=== PATIENT | female | born 1950 | race American Indian/Alaskan Native ===

== ENCOUNTER 2018-06-06 15:40 | Inpatient (IN) | payer MEDICARE ==
[2018-06-06] MEDS ORDERED: NACL 0.9% 500 ML 500 ML IV ONE (15:54)
--- NOTE | 2018-06-06 15:57 | Emergency Department Report ---
ED Neuro Deficit HPI - General Chief Complaint: Weakness Stated Complaint: POSSIBLE CVA Time Seen by Provider: 06/06/18 15:50 Source: patient, EMS (ems notes not available at time of chart dictation. Verbal report received from EMS), RN notes reviewed, old records reviewed Mode of arrival: Stretcher Limitations: Physical Limitation - History of Present Illness Initial Comments: This is a 68-year-old female. The patient is not known to this provider previously. The patient has a past medical history of stroke with residual left-sided weakness, hypertension, diabetes, hypothyroidism, peripheral neuropathy, obesity The patient is brought to the hospital today as a possible code stroke. As per verbal report from EMS, and then subsequently the patient, EMS was contacted initially, at this, or around 1:45 PM today, with a complaint of elevated blood pressure. EMS really reported to this provider that the patient was "hypertensive." They then left. EMS was then activated, after the patient went to the restroom at around 2:47 PM, and reportedly developed worsening left-sided weakness. She indicates it was in her left arm. The patient also made comments about her left leg being weak, but she was not able to clarify if the weakness was new or old or worse or better. In addition, she was reported by emergency medical services to be ambulating with a walker after using the restroom. The patient indicates chronic neuropathic numbness in her legs, and indicates that her symptoms appear to be constant, did not radiate anywhere, does not appear to have exacerbating or relieving factors. She indicated that she is taking aspirin. Of note, patient was admitted to this hospital for similar symptoms in October, had an extensive workup, including negative MRI of the brain, which was negative for acute disease, MRa of the brain, which was negative for acute disease, unremarkable echocardiogram, unremarkable carotid Doppler, and unremarkable MRI of the cervical and thoracic spine. At that time, physical therapy and rehabilitation was recommended, patient was seen in conjunction with neurology, who recommended outpatient visual evoked potentials. It was suspected that the patient may have had an acute lacunar stroke, which did not show up in the MRI. -: Sudden Location: left arm, left leg Presenting Symptoms: Present: Weak/Paralyzed One Side History of same: Yes Place: home Severity: moderate Quality: weak Improves With: none Worsens With: none On Anticoagulants: Yes Context: gradual onset - Related Data Home Medications: Home Medications Medication Instructions Recorded Confirmed Last Taken Atenolol [Tenormin] 50 mg PO QDAY 07/18/14 11/24/17 Unknown Gabapentin [Neurontin] 200 mg PO QDAY 07/18/14 11/24/17 Unknown amLODIPine [Norvasc] 10 mg PO QDAY 07/18/14 11/24/17 Unknown cloNIDine [Catapres] 0.2 mg PO QID 07/18/14 11/24/17 11/24/17 metFORMIN [Glucophage] 500 mg PO BID 07/18/14 11/24/17 Unknown Previous Rx's Medication Instructions Recorded Last Taken Type AtorvaSTATin [Lipitor] 40 mg PO QHS #30 tablet 11/28/17 Unknown Rx Levothyroxine [Synthroid] 25 mcg PO DAILY@0600 #30 tablet 11/28/17 Unknown Rx Levothyroxine [Synthroid] 150 mcg PO DAILY@0600 #30 tablet 11/28/17 Unknown Rx traMADol [Ultram 50 MG tab] 50 mg PO Q6HR PRN #10 tablet 11/28/17 Unknown Rx Allergies/Adverse Reactions: Allergies Allergy/AdvReac Type Severity Reaction Status Date / Time doxycycline Allergy Itching Verified 04/07/15 13:49 alprazolam [From Xanax] AdvReac Shortness Verified 04/07/15 18:06 of Breath Penicillins AdvReac Rash Verified 04/07/15 13:49 ED Review of Systems ROS: Stated complaint: POSSIBLE CVA Other details as noted in HPI Constitutional: malaise. denies: fever Eyes: denies: eye discharge ENT: denies: epistaxis Respiratory: denies: cough Cardiovascular: denies: chest pain Gastrointestinal: denies: vomiting Genitourinary: denies: dysuria Musculoskeletal: arthralgia, myalgia Skin: denies: lesions Neurological: weakness Psychiatric: anxiety ED Past Medical Hx - Past Medical History Hx Hypertension: Yes Hx CVA: Yes Hx Congestive Heart Failure: No Hx Diabetes: Yes Hx Deep Vein Thrombosis: No Hx Arthritis: Yes Hx Seizures: No Hx Asthma: No Additional medical history: LYMPHEDEMA - Surgical History Additional Surgical History: tubal ligation - Social History Smoking Status: Never Smoker - Medications Home Medications: Home Medications Medication Instructions Recorded Confirmed Last Taken Type Atenolol [Tenormin] 50 mg PO QDAY 07/18/14 11/24/17 Unknown History Gabapentin [Neurontin] 200 mg PO QDAY 07/18/14 11/24/17 Unknown History amLODIPine [Norvasc] 10 mg PO QDAY 07/18/14 11/24/17 Unknown History cloNIDine [Catapres] 0.2 mg PO QID 07/18/14 11/24/17 11/24/17 History metFORMIN [Glucophage] 500 mg PO BID 07/18/14 11/24/17 Unknown History AtorvaSTATin [Lipitor] 40 mg PO QHS #30 tablet 11/28/17 Unknown Rx Levothyroxine [Synthroid] 25 mcg PO DAILY@0600 #30 tablet 11/28/17 Unknown Rx Levothyroxine [Synthroid] 150 mcg PO DAILY@0600 #30 tablet 11/28/17 Unknown Rx traMADol [Ultram 50 MG tab] 50 mg PO Q6HR PRN #10 tablet 11/28/17 Unknown Rx ED Neuro Physical Exam - General General appearance: alert, in no apparent distress, obese Suspected Stroke: No - Head Head exam: Present: atraumatic, normocephalic - Eye Eye exam: Present: normal appearance, EOMI. Absent: nystagmus - ENT ENT exam: Present: normal exam, normal orophraynx, mucous membranes moist, normal external ear exam - Neck Neck exam: Present: normal inspection, full ROM. Absent: tenderness, meningismus - Respiratory Respiratory exam: Present: normal lung sounds bilaterally. Absent: respiratory distress - Cardiovascular Cardiovascular Exam: Present: regular rate, normal rhythm, normal heart sounds. Absent: bradycardia, tachycardia, irregular rhythm, systolic murmur, diastolic murmur, rubs, gallop - GI/Abdominal GI/Abdominal exam: Present: soft. Absent: distended, tenderness, guarding, rebound, rigid, pulsatile mass - Extremities Exam Extremities exam: Present: normal inspection, pedal edema. Absent: calf tenderness - Back Exam Back exam: Present: normal inspection. Absent: tenderness, CVA tenderness (R), paraspinal tenderness - Neurological Exam Neurological exam: Present: alert, oriented X3, motor sensory deficit - NIHSS Assessment Interval: Baseline 1a. Level of Consciousness: alert/keenly responsive 1b. LOC Questions: answers both correctly 1c. LOC Commands: performs tasks correctly 2. Best Gaze: normal 3. Visual: no visual loss 4. Facial Palsy: normal symmetrical movement 5b. Motor Arm Right: no drift 5a. Motor Arm Left: drift 6a. Motor Leg Left: drift 6b. Motor Leg Right: drift 7. Limb Ataxia: present 1 limb 8. Sensory: mild/moderate sensory loss 9. Best Language: no aphasia 10. Dysarthria: normal 11. Extinction/Inattention: no abnormality Total Score: 5 Stroke Severity: Moderate Stroke - Psychiatric Psychiatric exam: Present: normal affect, normal mood - Skin Skin exam: Present: warm, dry, intact, normal color. Absent: rash ED Course Vital Signs 06/06/18 06/06/18 06/06/18 16:17 16:24 16:30 Temperature 97.9 F Pulse Rate 79 Respiratory 12 Rate Blood Pressure 222/134 222/134 222/134 Blood Pressure [Right] O2 Sat by Pulse 99 95 Oximetry 06/06/18 06/06/18 06/06/18 16:47 17:00 17:30 Temperature Pulse Rate 73 68 62 Respiratory 18 14 16 Rate Blood Pressure 182/96 188/87 Blood Pressure 178/91 [Right] O2 Sat by Pulse 9 L 95 96 Oximetry - Lab Data Result diagrams: 06/06/18 16:19 06/06/18 16:19 Lab Results 06/06/18 06/06/18 06/06/18 Range/Units 15:46 16:19 16:19 WBC 6.1 (4.5-11.0) K/mm3 RBC 4.49 (3.65-5.03) M/mm3 Hgb 12.4 (10.1-14.3) gm/dl Hct 38.3 (30.3-42.9) % MCV 85 (79-97) fl MCH 28 (28-32) pg MCHC 32 (30-34) % RDW 15.7 H (13.2-15.2) % Plt Count 243 (140-440) K/mm3 Lymph % (Auto) 25.9 (13.4-35.0) % [place] % (Auto) 12.1 H (0.0-7.3) % Eos % (Auto) 3.9 (0.0-4.3) % Baso % (Auto) 0.5 (0.0-1.8) % Lymph # 1.6 (1.2-5.4) K/mm3 [place] # 0.7 (0.0-0.8) K/mm3 Eos # 0.2 (0.0-0.4) K/mm3 Baso # 0.0 (0.0-0.1) K/mm3 Seg Neutrophils % 57.6 (40.0-70.0) % Seg Neutrophils # 3.5 (1.8-7.7) K/mm3 PT 13.6 (12.2-14.9) Sec. INR 1.00 (0.87-1.13) APTT 32.0 (24.2-36.6) Sec. Thrombin Time (15.1-19.6) Sec. Sodium (137-145) mmol/L Potassium (3.6-5.0) mmol/L Chloride (98-107) mmol/L Carbon Dioxide (22-30) mmol/L Anion Gap mmol/L BUN (7-17) mg/dL Creatinine (0.7-1.2) mg/dL Estimated GFR ml/min BUN/Creatinine Ratio % Glucose (65-100) mg/dL POC Glucose 102 (70-105) Calcium (8.4-10.2) mg/dL Total Creatine Kinase (30-135) units/L Troponin T (0.00-0.029) ng/mL Urine Color (Yellow) Urine Turbidity (Clear) Urine pH (5.0-7.0) Ur Specific [place] (1.003-1.030) Urine Protein (Negative) mg/dL Urine Glucose (UA) (Negative) mg/dL Urine Ketones (Negative) mg/dL Urine Blood (Negative) Urine Nitrite (Negative) Urine Bilirubin (Negative) Urine Urobilinogen (<2.0) mg/dL Ur Leukocyte Esterase (Negative) Urine WBC (Auto) (0.0-6.0) /HPF Urine RBC (Auto) (0.0-6.0) /HPF U Epithel Cells (Auto) (0-13.0) /HPF 06/06/18 06/06/18 06/06/18 Range/Units 16: 16: 16: WBC (4.5-11.0) K/mm3 RBC (3.65-5.03) M/mm3 Hgb (10.1-14.3) gm/dl Hct (30.3-42.9) % MCV (79-97) fl MCH (28-32) pg MCHC (30-34) % RDW (13.2-15.2) % Plt Count (140-440) K/mm3 Lymph % (Auto) (13.4-35.0) % [place] % (Auto) (0.0-7.3) % Eos % (Auto) (0.0-4.3) % Baso % (Auto) (0.0-1.8) % Lymph # (1.2-5.4) K/mm3 [place] # (0.0-0.8) K/mm3 Eos # (0.0-0.4) K/mm3 Baso # (0.0-0.1) K/mm3 Seg Neutrophils % (40.0-70.0) % Seg Neutrophils # (1.8-7.7) K/mm3 PT (12.2-14.9) Sec. INR (0.87-1.13) APTT (24.2-36.6) Sec. Thrombin Time 21.0 H (15.1-19.6) Sec. Sodium 138 (137-145) mmol/L Potassium 3.5 L (3.6-5.0) mmol/L Chloride 96.8 L (98-107) mmol/L Carbon Dioxide 28 (22-30) mmol/L Anion Gap 17 mmol/L BUN 11 (7-17) mg/dL Creatinine 0.5 L (0.7-1.2) mg/dL Estimated GFR > 60 ml/min BUN/Creatinine Ratio 22 % Glucose 105 H (65-100) mg/dL POC Glucose (70-105) Calcium 9.1 (8.4-10.2) mg/dL Total Creatine Kinase 73 (30-135) units/L Troponin T < 0.010 (0.00-0.029) ng/mL Urine Color (Yellow) Urine Turbidity (Clear) Urine pH (5.0-7.0) Ur Specific [place] (1.003-1.030) Urine Protein (Negative) mg/dL Urine Glucose (UA) (Negative) mg/dL Urine Ketones (Negative) mg/dL Urine Blood (Negative) Urine Nitrite (Negative) Urine Bilirubin (Negative) Urine Urobilinogen (<2.0) mg/dL Ur Leukocyte Esterase (Negative) Urine WBC (Auto) (0.0-6.0) /HPF Urine RBC (Auto) (0.0-6.0) /HPF U Epithel Cells (Auto) (0-13.0) /HPF 06/06/18 Range/Units Unknown WBC (4.5-11.0) K/mm3 RBC (3.65-5.03) M/mm3 Hgb (10.1-14.3) gm/dl Hct (30.3-42.9) % MCV (79-97) fl MCH (28-32) pg MCHC (30-34) % RDW (13.2-15.2) % Plt Count (140-440) K/mm3 Lymph % (Auto) (13.4-35.0) % [place] % (Auto) (0.0-7.3) % Eos % (Auto) (0.0-4.3) % Baso % (Auto) (0.0-1.8) % Lymph # (1.2-5.4) K/mm3 [place] # (0.0-0.8) K/mm3 Eos # (0.0-0.4) K/mm3 Baso # (0.0-0.1) K/mm3 Seg Neutrophils % (40.0-70.0) % Seg Neutrophils # (1.8-7.7) K/mm3 PT (12.2-14.9) Sec. INR (0.87-1.13) APTT (24.2-36.6) Sec. Thrombin Time (15.1-19.6) Sec. Sodium (137-145) mmol/L Potassium (3.6-5.0) mmol/L Chloride (98-107) mmol/L Carbon Dioxide (22-30) mmol/L Anion Gap mmol/L BUN (7-17) mg/dL Creatinine (0.7-1.2) mg/dL Estimated GFR ml/min BUN/Creatinine Ratio % Glucose (65-100) mg/dL POC Glucose (70-105) Calcium (8.4-10.2) mg/dL Total Creatine Kinase (30-135) units/L Troponin T (0.00-0.029) ng/mL Urine Color Colorless (Yellow) Urine Turbidity Clear (Clear) Urine pH 7.0 (5.0-7.0) Ur Specific [place] 1.003 (1.003-1.030) Urine Protein <15 mg/dl (Negative) mg/dL Urine Glucose (UA) Neg (Negative) mg/dL Urine Ketones Neg (Negative) mg/dL Urine Blood Neg (Negative) Urine Nitrite Neg (Negative) Urine Bilirubin Neg (Negative) Urine Urobilinogen < 2.0 (<2.0) mg/dL Ur Leukocyte Esterase Neg (Negative) Urine WBC (Auto) 4.0 (0.0-6.0) /HPF Urine RBC (Auto) < 1.0 (0.0-6.0) /HPF U Epithel Cells (Auto) < 1.0 (0-13.0) /HPF - EKG Data -: EKG Interpreted by Ia EKG shows normal: sinus rhythm Rate: normal 06/06/18 18:57 Sinus, 76 bpm, left axis deviation, premature atrial contractions, QTC prolonged, abnormal EKG, not consistent with ST elevation myocardial infarction - Radiology Data Radiology results: report reviewed, image reviewed Noncontrast CT scan of the brain is negative for acute disease. X-ray the chest is negative for acute disease. - Medical Decision Making Differential diagnosis, including but not limited to: Acute stroke, subacute stroke, chronic weakness, conversion disorder, pneumonia, urinary tract infection, neuropathy Assessment and plan: 68-year-old female with chronic left-sided weakness, with possible worsening weakness. On my examination, she does not appear to have ac [place] weakness on her left side when compared to old documentation from prior evaluations. Given her history of chronic weakness, and her current examination, it is my opinion that risks of TPA would outweigh benefits. The patient was seen in evaluation with consulting stroke neurologist, Dr. Gabo Bernardo, who personally evaluated the patient, and also agreed that the patient did not warrant TPA. In addition, he did not recommend emergent angiogram, given the patient's underlying functional status, and recommended admission for medical optimization, blood pressure control, and routine stroke workup. Case presented to the Hospital physician, Dr. Mace, who has accepted the patient to the medical service. - Core Measures Measure Exclusions: not indicated - Thrombolytic Inclusion/Exclusion Thrombolytic Contraindications: Rapidily Improving s/s (left-sided weakness appears to be at baseline) Critical care attestation.: If time is entered above; I have spent that time in minutes in the direct care of this critically ill patient, excluding procedure time. ED Disposition Clinical Impression: Left-sided weakness, HTN (hypertension) Disposition: DC-09 OP ADMIT IP TO THIS HOSP Is pt being admited?: Yes Does the pt Need Aspirin: Yes Condition: Stable Instructions: Hypertension (ED) Referrals: PRIMARY CARE, [Referring] - 3-5 Days
--- NOTE | 2018-06-06 16:04 | Cat Scan Report ---
FINAL REPORT EXAM: CT HEAD/BRAIN WO CON HISTORY: neuro deficits <6hrs or sx present upon awakening TECHNIQUE: Standard unenhanced CT of the head at 5.0 millimeter axial increments. PRIORS: CT head 11/23/2017 FINDINGS: The ventricular system is normal in size and configuration. There small vessel ischemic changes again noted. Atrophy or previous small infarct in the left cerebellar hemisphere is stable. There is no evidence for mass lesion, mass effect, midline shift, acute intracranial hemorrhage, or a cute ischemia/ infarction. No evidence for acute skull fracture is seen. No abnormality in the overlying scalp soft tissues is seen. Visualized paranasal sinuses are clear. IMPRESSION: No acute intracranial process noted. No change.
[2018-06-06 16:40] LABS: BUN/Creatinine Ratio 22; Blood Urea Nitrogen 11 mg/dL (7-17); Calcium 9.1 mg/dL (8.4-10.2); Hemolysis Index 7
[2018-06-06 16:44] LABS: Basophils % (Auto) 0.5 % (0.0-1.8); Eosinophils # (Auto) 0.2 K/mm3 (0.0-0.4); Eosinophils % (Auto) 3.9 % (0.0-4.3); Hematocrit 38.3 % (30.3-42.9); Hemoglobin 12.4 gm/dl (10.1-14.3); Lymphocytes # (Auto) 1.6 K/mm3 (1.2-5.4); Lymphocytes % (Auto) 25.9 % (13.4-35.0); Mean Corpuscular HGB Conc 32 % (30-34); Mean Corpuscular Volume 85 fl (79-97); Monocytes # (Auto) 0.7 K/mm3 (0.0-0.8); Monocytes % (Auto) 12.1 % (0.0-7.3); Platelet Count 243 K/mm3 (140-440); Red Blood Count 4.49 M/mm3 (3.65-5.03); Red Cell Distribution Width 15.7 % (13.2-15.2)
[2018-06-06 17:22] LABS: Bilirubin,Urine NEG (Negative); Blood,Urine NEG (Negative); Color,Urine Colorless (Yellow); Protein,Urine <15 mg/dL mg/dL (Negative); RBC,Urine < 1.0 /HPF (0.0-6.0); Urobilinogen,Urine < 2.0 mg/dL (<2.0)
--- NOTE | 2018-06-06 17:42 | XRay Report ---
FINAL REPORT EXAM: XR CHEST 1V AP HISTORY: cva ? pna TECHNIQUE: Frontal portable examination of the chest PRIORS: None FINDINGS: Oblique patient position limits the examination. Atherosclerotic change is present in the thoracic aorta. Cardiac silhouette size is normal without vascular congestion. The regional skeleton is without acute pathology. There is no pulmonary consolidation, pleural effusion, or pneumothorax. IMPRESSION: No acute cardiopulmonary disease in the visualized chest
--- NOTE | 2018-06-06 18:54 | History and Physical Report ---
History of Present Illness Chief complaint: confusion and weakness History of present illness: 68 YO Female with MO, DM, HTN, CVA, OA, Obesity Hypoventilation, Lymphedema, Debility presents to ED for evaluation. Pt is confused and unable to provide detailed history. Pt history taken from ED staff. As per staff, EMS was notified 1t 1345 hours for evaluation. Upon arrival the patient was found to be confused with a neurologic deficit. A code stroke was called, and the patient was transported to [facility] for further care and evaluation. Pt seen and evaluated in ED and found to have symptoms of CVA. Pt is outside therapeutic window for TPA at time of my evaluation. No further history obtainable. Pt Initiated on CVA pro tocol, and admitted telemetry. Past History Past Medical History: arthritis, diabetes, hypothyroidism, stroke, other (Lymphedema) Past Surgical History: Other (Tubal ligation) Social history: . denies: smoking, alcohol abuse, prescription drug abuse Family history: diabetes, hypertension Medications and Allergies Allergies Allergy/AdvReac Type Severity Reaction Status Date / Time doxycycline Allergy Itching Verified 04/07/15 13:49 alprazolam [From Xanax] AdvReac Shortness Verified 04/07/15 18:06 of Breath Penicillins AdvReac Rash Verified 04/07/15 13:49 Home Medications Medication Instructions Recorded Confirmed Last Taken Type Atenolol [Tenormin] 50 mg PO QDAY 07/18/14 06/07/18 06/06/18 History Gabapentin [Neurontin] 200 mg PO QDAY 07/18/14 06/07/18 06/06/18 History cloNIDine [Catapres] 0.2 mg PO QID 07/18/14 06/06/18 06/06/18 History metFORMIN [Glucophage] 500 mg PO BID 07/18/14 06/07/18 06/06/18 History Levothyroxine [Synthroid] 25 mcg PO DAILY@0600 #30 tablet 11/28/17 06/06/18 06/06/18 Rx Levothyroxine [Synthroid] 150 mcg PO DAILY@0600 #30 tablet 11/28/17 06/07/18 06/06/18 Rx traMADol [Ultram 50 MG tab] 50 mg PO Q6HR PRN #10 tablet 11/28/17 06/06/18 Unknown Rx Potassium Chloride [Klor-Con 10] 10 meq PO DAILY 06/07/18 06/07/18 06/06/18 His tory cloNIDine [Catapres] 0.2 mg PO Q6H 06/07/18 06/07/18 06/06/18 History hydrALAZINE [Apresoline] 25 mg PO Q6HR 06/07/18 06/07/18 06/06/18 History Review of Systems ROS unobtainable: due to mental status Exam - Constitutional Vitals: Temp Pulse Resp BP Pulse Ox 97.9 F 62 16 188/87 96 06/06/18 16:24 06/06/18 17:30 06/06/18 17:30 06/06/18 17:30 06/06/18 17:30 General appearance: Present: mild distress, obese - EENT Eyes: Present: miosis ENT: hearing intact, clear oral mucosa - Neck Neck: Present: supple, normal ROM - Respiratory Respiratory effort: labored Respiratory: bilateral: diminished - Cardiovascular Heart Sounds: Present: S1 & S2. Absent: rub, click - Extremities Extremities: pulses symmetrical, No edema Peripheral Pulses: within normal limits - Abdominal General gastrointestinal: Present: soft, non-tender, non-distended, normal bowel sounds Female genitourinary: Present: normal - Integumentary Integumentary: Present: clear, dry - Musculoskeletal Musculoskeletal: generalized weakness - Psychiatric Psychiatric: no appropriate mood/affect, no intact judgment & insight, no memory intact - Neurologic Neurologic: moves all extremities, no gait normal Results - Labs CBC & Chem 7: 06/06/18 16:19 06/06/18 16:19 Labs: Abnormal lab results 06/06/18 06/06/18 06/06/18 Range/Units 16:19 16:19 16:19 RDW 15.7 H (13.2-15.2) % [place] % (Auto) 12.1 H (0.0-7.3) % Thrombin Time 21.0 H (15.1-19.6) Sec. Potassium 3.5 L (3.6-5.0) mmol/L Chloride 96.8 L (98-107) mmol/L Creatinine 0.5 L (0.7-1.2) mg/dL Glucose 105 H (65-100) mg/dL Assessment and Plan - Patient Problems (1) CVA (cerebral vascular accident) Current Visit: No Status: Acute Qualifiers: Laterality of affected vessel: unspecified Plan to address problem: Admit to telemetry, Initiated on stroke protocol, CT Head, Neuro check, MRI Brain, MRA Brain, Echo, PT/OT/Speech therapy, Carotid doppler, Antiplatelet therapy, (2) Left-sided weakness Current Visit: Yes Status: Acute Plan to address problem: Secondary to CVA, PT consulted, (3) Diabetes Current Visit: Yes Status: Acute Plan to address problem: ADA diet, insulin, accu check (4) Obesity hypoventilation syndrome Current Visit: Yes Status: Acute Plan to address problem: Supportive care, supplemental oxygen, NIPPV as clinically indicated, (5) DVT prophylaxis Current Visit: No Status: Acute Plan to address problem: SCD to BLE while in bed.
[2018-06-06] MEDS ORDERED: MILK OF MAGNESIA PO PRN (18:58)
[2018-06-06] MEDS ORDERED: SODIUM CHLORIDE FLUSH SYRINGE 10 ML IV PRN (18:58)
[2018-06-06] MEDS ORDERED: PHENERGAN PR PRN (18:58)
[2018-06-06] MEDS ORDERED: ZOFRAN IV PRN (18:58)
[2018-06-06] MEDS ORDERED: REGLAN PO PRN (18:58)
[2018-06-06] MEDS ORDERED: DULCOLAX PR PRN (18:58)
[2018-06-06] MEDS ORDERED: BABY ASPIRIN PO ONE (19:00)
[2018-06-06] MEDS ORDERED: D50W (25GM) Syringe IV PRN (19:03)
[2018-06-06] MEDS ORDERED: ULTRAM ONE (20:44)
[2018-06-06] MEDS ORDERED: BABY ASPIRIN ONE (20:45)
[2018-06-06] MEDS: ULTRAM PO PRN (20:56)
[2018-06-06] MEDS: HumaLOG SUB-Q SCH (23:50)
[2018-06-07] MEDS: SYNTHROID PO SCH ×2 (05:47)
[2018-06-07 06:20] LABS: Chol/HDL Ratio 4.11 %
[2018-06-07] MEDS: HumaLOG SUB-Q SCH ×4 (07:49→22:50)
[2018-06-07] MEDS: NEURONTIN PO SCH (09:31)
[2018-06-07] MEDS ORDERED: TENORMIN PO SCH ×2 (10:00)
[2018-06-07] MEDS: TENORMIN PO SCH (10:44)
[2018-06-07] MEDS: APRESOLINE PO SCH ×2 (12:30→17:23)
--- NOTE | 2018-06-07 16:11 | Progress Note ---
Assessment and Plan / Acute CVA (cerebral vascular accident) Monitor at telemetry, Initiated on stroke protocol, cont Neuro check, Antiplatelet/statin therapy, follow MRI Brain, MRA Brain, Echo, PT/OT/Speech therapy, Carotid doppler, / Left-sided weakness/hameparesis Secondary to CVA, PT consulted, / Diabetes cont ADA diet, insulin, accu check /Morbid Obesity Supportive care, diet/exercise education when medically stable / DVT prophylaxis SCD to BLE while in bed. Subjective Date of service: 06/07/18 Interval history: Pt seen and examined c/o left sided weakness UE> LE denies any chest pain Objective - Constitutional Vitals: Vital Signs - 12hr 06/07/18 06/07/18 06/07/18 06:43 07:36 10:44 Temperature 98.3 F Pulse Rate 65 66 Respiratory 20 Rate Blood Pressure 174/87 128/77 O2 Sat by Pulse 94 Oximetry 06/07/18 06/07/18 12:18 12:30 Temperature 98.0 F Pulse Rate 65 Respiratory 20 Rate Blood Pressure 176/87 176/89 O2 Sat by Pulse 92 Oximetry General appearance: Present: no acute distress, obese - EENT Eyes: PERRL, EOM intact ENT: hearing intact, clear oral mucosa Ears: bilateral: normal - Neck Neck: supple, normal ROM - Respiratory Respiratory effort: normal Respiratory: bilateral: CTA - Cardiovascular Rhythm: regular Heart Sounds: Present: S1 & S2. Absent: gallop, rub Extremities: pulses intact, No edema, normal color, Full ROM - Gastrointestinal General gastrointestinal: Present: soft, non-tender, non-distended, normal bowel sounds - Integumentary Integumentary: clear, warm, dry - Musculoskeletal Musculoskeletal: left sided weakness - Neurologic Neurologic: focal deficits (left sided weakness), no gait normal - Psychiatric Psychiatric: memory intact, appropriate mood/affect, intact judgment & insight - Labs CBC & Chem 7: 06/06/18 16:19 06/06/18 16:19 Labs: Abnormal lab results 06/06/18 06/06/18 06/06/18 Range/Units 16:19 16:19 16: RDW 15.7 H (13.2-15.2) % [place] % (Auto) 12.1 H (0.0-7.3) % Thrombin Time 21.0 H (15.1-19.6) Sec. Potassium 3.5 L (3.6-5.0) mmol/L Chloride 96.8 L (98-107) mmol/L Creatinine 0.5 L (0.7-1.2) mg/dL Glucose 105 H (65-100) mg/dL HDL Cholesterol (40-59) mg/dL 06/07/18 Range/Units 05:32 RDW (13.2-15.2) % [place] % (Auto) (0.0-7.3) % Thrombin Time (15.1-19.6) Sec. Potassium (3.6-5.0) mmol/L Chloride (98-107) mmol/L Creatinine (0.7-1.2) mg/dL Glucose (65-100) mg/dL HDL Cholesterol 35 L (40-59) mg/dL
[2018-06-08] MEDS: APRESOLINE PO SCH ×5 (00:56→18:30)
[2018-06-08] MEDS ORDERED: RESTORIL PO ONE (02:14)
[2018-06-08] MEDS: SYNTHROID PO SCH ×2 (05:40)
[2018-06-08] MEDS: HumaLOG SUB-Q SCH ×4 (08:22→22:26)
[2018-06-08] MEDS: TENORMIN PO SCH (10:20)
[2018-06-08] MEDS: NEURONTIN PO SCH (10:20)
[2018-06-08] MEDS: ULTRAM PO PRN ×2 (10:20→18:30)
[2018-06-08] MEDS: ECOTRIN PO SCH (11:13)
[2018-06-08] MEDS ORDERED: K-DUR PO ONE (11:30)
--- NOTE | 2018-06-08 15:47 | Progress Note ---
Assessment and Plan / Acute CVA (cerebral vascular accident) Monitor at telemetry, Initiated on stroke protocol, cont Neuro check, Antiplatelet/statin therapy, follow MRI Brain, MRA Brain, Echo, Carotid doppler, / Left-sided weakness/hameparesis Secondary to CVA, PT consulted, /hypothyroidism, cont synthroid /HTN, resumed home meds / Diabetes cont ADA diet, insulin, accu check /Morbid Obesity Supportive care, diet/exercise education when medically stable / DVT prophylaxis SCD to BLE while in bed. Subjective Date of service: 06/08/18 Interval history: Pt seen and examined c/o left sided weakness UE> LE denies any chest pain MRI pending Objective - Exam Narrative Exam: General appearance: Present: no acute distress, obese - EENT Eyes: PERRL, EOM intact ENT: hearing intact, clear oral mucosa Ears: bilateral: normal - Neck Neck: supple, normal ROM - Respiratory Respiratory effort: normal Respiratory: bilateral: CTA - Cardiovascular Rhythm: regular Heart Sounds: Present: S1 & S2. Absent: gallop, rub Extremities: pulses intact, No edema, normal color, Full ROM - Gastrointestinal General gastrointestinal: Present: soft, non-tender, non-distended, normal bowel sounds - Integumentary Integumentary: clear, warm, dry - Musculoskeletal Musculoskeletal: left sided weakness - Neurologic Neurologic: focal deficits (left sided weakness), no gait normal - Psychiatric Psychiatric: memory intact, appropriate mood/affect, intact judgment & insight - Constitutional Vitals: Vital Signs - 12hr 06/08/18 06/08/18 06/08/18 04:20 05:40 08:39 Temperature 98.2 F 98.0 F Pulse Rate 88 65 77 Respiratory 14 20 Rate Blood Pressure 195/103 195/103 185/105 O2 Sat by Pulse 94 95 Oximetry - Labs CBC & Chem 7: 06/06/18 16:19 06/06/18 16:19 Labs: Abnormal lab results 06/08/18 Range/Units 11:55 POC Glucose 112 H (70-105)
[2018-06-09] MEDS ORDERED: RESTORIL PO ONE (00:07)
[2018-06-09] MEDS: APRESOLINE PO SCH ×4 (00:55→17:28)
[2018-06-09] MEDS: SYNTHROID PO SCH ×2 (05:47)
[2018-06-09] MEDS: HumaLOG SUB-Q SCH ×4 (08:14→22:37)
[2018-06-09] MEDS: ULTRAM PO PRN ×2 (08:23→17:28)
[2018-06-09] MEDS: TENORMIN PO SCH (10:03)
[2018-06-09] MEDS: ECOTRIN PO SCH (10:03)
[2018-06-09] MEDS: NEURONTIN PO SCH (10:05)
--- NOTE | 2018-06-09 13:21 | Progress Note ---
Subjective Date of service: 06/09/18 Interval history: see my dicated note on patient reviewed the ED note and Ct of head Objective - Vital Sign Vital Signs - 12hr 06/09/18 06/09/18 06/09/18 04:00 05:47 06:00 Temperature 98.1 F Pulse Rate 76 76 76 Respiratory 18 Rate Blood Pressure 177/67 Blood Pressure 177/67 [Right] O2 Sat by Pulse 99 Oximetry 06/09/18 06/09/18 06/09/18 08:23 09:19 09:23 Temperature 98.4 F Pulse Rate 68 Respiratory 20 18 20 Rate Blood Pressure 170/88 Blood Pressure [Right] O2 Sat by Pulse 94 Oximetry 06/09/18 12:35 Temperature 98.7 F Pulse Rate 77 Respiratory 18 Rate Blood Pressure 169/103 Blood Pressure [Right] O2 Sat by Pulse 94 Oximetry - Laboratory Findings CBC and BMP: 06/06/18 16:19 06/06/18 16:19 Abnormal Lab Findings: Abnormal Labs 06/06/18 06/06/18 06/06/18 16:19 16:19 16:19 RDW 15.7 H [place] % (Auto) 12.1 H Thrombin Time 21.0 H Potassium 3.5 L Chlor[place] 96.8 L Creatinine 0.5 L Glucose 105 H POC Glucose HDL Cholesterol 06/07/18 06/08/18 06/09/18 05:32 11:55 06:03 RDW [place] % (Auto) Thrombin Time Potassium Chloride Creatinine Glucose POC Glucose 112 H 114 H HDL Cholesterol 35 L 06/09/18 11:44 RDW [place] % (Auto) Thrombin Time Potassium Chloride Creatinine Glucose POC Glucose 113 H HDL Cholesterol
--- NOTE | 2018-06-09 14:50 | Progress Note ---
Assessment and Plan / Possible Acute CVA (cerebral vascular accident) Monitor at telemetry, Initiated on stroke protocol, cont Neuro check, Antiplatelet/statin therapy, follow MRI Brain, MRA Brain, Echo, Carotid doppler, / Acute on chronic Left-sided weakness/hameparesis Secondary to previous CVA, Patient states that symptom has worsened PT consulted, /hypothyroidism, cont synthroid /HTN, resumed home meds / Diabetes cont ADA diet, insulin, accu check /Morbid Obesity Supportive care, diet/exercise education when medically stable / DVT prophylaxis SCD to BLE while in bed. Disposition: need RUSLAN Brief history: Very pleasant 67-year-old female patient with significant history of CVA with left-sided weakness, was admitted through emergency room with worsening left- sided weakness and neurological symptoms, patient was not a candidate for TPA and thrombectomy, admitted per stroke protocol. Subjective Date of service: 06/09/18 Interval history: Pt seen and examined c/o left sided weakness UE> LE denies any chest pain MRI pending Objective - Exam Narrative Exam: General appearance: Present: no acute distress, obese - EENT Eyes: PERRL, EOM intact ENT: hearing intact, clear oral mucosa Ears: bilateral: normal - Neck Neck: supple, normal ROM - Respiratory Respiratory effort: normal Respiratory: bilateral: CTA - Cardiovascular Rhythm: regular Heart Sounds: Present: S1 & S2. Absent: gallop, rub Extremities: pulses intact, No edema, normal color, Full ROM - Gastrointestinal General gastrointestinal: Present: soft, non-tender, non-distended, normal bowel sounds - Integumentary Integumentary: clear, warm, dry - Musculoskeletal Musculoskeletal: left sided weakness - Neurologic Neurologic: focal deficits (left sided weakness), no gait normal - Psychiatric Psychiatric: memory intact, appropriate mood/affect, intact judgment & insight - Constitutional Vitals: Vital Signs - 12hr 06/09/18 06/09/18 06/09/18 04:00 05:47 06:00 Temperature 98.1 F Pulse Rate 76 76 76 Respiratory 18 Rate Blood Pressure 177/67 Blood Pressure 177/67 [Right] O2 Sat by Pulse 99 Oximetry 06/09/18 06/09/18 06/09/18 08:23 09:19 09:23 Temperature 98.4 F Pulse Rate 68 Respiratory 20 18 20 Rate Blood Pressure 170/88 Blood Pressure [Right] O2 Sat by Pulse 94 Oximetry 06/09/18 12:35 Temperature 98.7 F Pulse Rate 77 Respiratory 18 Rate Blood Pressure 169/103 Blood Pressure [Right] O2 Sat by Pulse 94 Oximetry - Labs CBC & Chem 7: 06/10/18 08:09 06/10/18 08:09 Labs: Abnormal lab results 06/09/18 06/09/18 Range/Units 06:03 11:44 POC Glucose 114 H 113 H (70-105)
--- NOTE | 2018-06-09 15:25 | Magnetic Resonance Report ---
MRA HEAD WITHOUT CONTRAST: 06/09/18 CLINICAL: CVA. TECHNIQUE: Axial 3-D [id number] MR angiography of the [place] with review of axial source images. FINDINGS: Intact [place] with no aneurysm, stenosis or occlusion. Symmetric blood flow in the anterior, middle and posterior cerebral arteries. Normal basilar and vertebral arteries. IMPRESSION: Normal study.
--- NOTE | 2018-06-09 16:13 | Magnetic Resonance Report ---
MRI BRAIN WITHOUT CONTRAST: 06/06/18 18:59:00 CLINICAL: Seizure. COMPARISON: 11/24/17 TECHNIQUE: Axial diffusion, T1, T2, gradient echo T2*, coronal and axial FLAIR and sagittal T1 sequences on a 1.5 [place] magnet. FINDINGS: Large metal artifacts from permanent dental work obscures the inferior portion of the frontal lobes on the diffusion and gradient echo sequences. No restricted diffusion. The ventricles and sulci are normal for age. Encephalomalacia involving the lateral aspect of the left cerebellar hemisphere is unchanged compared to the previous exam. Moderate bilateral multifocal and confluent periventricular white matter hyperintensities on FLAIR and T2. No chronic microbleeds on the gradient echo sequence. No mass or mass effect. No hemorrhage, edema or extra-axial collection. Normal pituitary and optic chiasm. The brainstem is normal except for tiny pontine chronic lacunar infarcts. Intact vascular flow voids. Normal sinuses. The orbits, and soft tissues are normal. Normal calvarium and skull base. IMPRESSION: 1. No mass and no evidence of acute/subacute infarct or hemorrhage. 2. Chronic left cerebellar encephalomalacia. 3. Tiny chronic pontine lacunar infarcts. 4. Moderate chronic white matter microangiopathy.
[2018-06-10] MEDS ORDERED: XANAX PO PRN (00:07)
[2018-06-10] MEDS ORDERED: APRESOLINE IV PRN (00:41)
[2018-06-10] MEDS ORDERED: RESTORIL PO ONE (01:08)
[2018-06-10] MEDS: APRESOLINE PO SCH ×5 (01:15→23:47)
[2018-06-10] MEDS: CATAPRES PO SCH ×5 (02:18→23:47)
[2018-06-10] MEDS: SYNTHROID PO SCH ×2 (05:42)
[2018-06-10] MEDS: HumaLOG SUB-Q SCH ×4 (08:07→22:12)
[2018-06-10 08:19] LABS: Hematocrit 38.9 % (30.3-42.9); Hemoglobin 12.7 gm/dl (10.1-14.3); Mean Corpuscular HGB Conc 33 % (30-34); Mean Corpuscular Volume 85 fl (79-97); Platelet Count 244 K/mm3 (140-440); Red Blood Count 4.57 M/mm3 (3.65-5.03); Red Cell Distribution Width 15.6 % (13.2-15.2)
[2018-06-10 08:46] LABS: BUN/Creatinine Ratio 24; Blood Urea Nitrogen 12 mg/dL (7-17); Calcium 8.7 mg/dL (8.4-10.2); Hemolysis Index 15
--- NOTE | 2018-06-10 11:55 | Vascular Lab Report ---
FINAL REPORT EXAM: VL CAROTID DUPLEX BILAT HISTORY: CVA TECHNIQUE: Grayscale and color and spectral Doppler ultrasound imaging of the carotid arteries was p erformed. PRIORS: None. FINDINGS: No areas of complete occlusion. Normal waveforms are seen throughout. No aneurysm. Normal flow is see n in the external carotid arteries. Antegrade flow is seen in the vertebral arteries. No atherosclero tic plaque is seen. Peak systolic velocities in cm/s below: Right: CCA: 111 proximally, 102 distally ICA: 64 proximally, 97 mid, 82 distally ECA: 121 Left: CCA: 118 proximally, 101 distally ICA: 70 proximally, 69 mid, 82 distally ECA: 100 The right ICA:CCA ratio is 0.87. The left ICA:CCA ratio is 0.69. IMPRESSION: No evidence of internal carotid artery stenosis.
[2018-06-10] MEDS: ECOTRIN PO SCH (12:41)
[2018-06-10] MEDS: NEURONTIN PO SCH (12:41)
[2018-06-10] MEDS: TENORMIN PO SCH (12:42)
[2018-06-10] MEDS: TYLENOL PO PRN (12:43)
--- NOTE | 2018-06-10 16:03 | Progress Note ---
Assessment and Plan / Possible Acute CVA (cerebral vascular accident) Monitor at telemetry, Initiated on stroke protocol, cont Neuro check, Antiplatelet/statin therapy, follow MRI Brain, MRA Brain, Echo, Carotid doppler, / Acute on chronic Left-sided weakness/hameparesis Secondary to previous CVA, Patient states that symptom has worsened PT consulted, /hypothyroidism, cont synthroid /HTN, resumed home meds / Diabetes cont ADA diet, insulin, accu check /Morbid Obesity Supportive care, diet/exercise education when medically stable / DVT prophylaxis SCD to BLE while in bed. Disposition: need RUSLANZEENAT notified Brief history: Very pleasant 67-year-old female patient with significant history of CVA with left-sided weakness, was admitted through emergency room with worsening left- sided weakness and neurological symptoms, patient was not a candidate for TPA and thrombectomy, admitted per stroke protocol. Subjective Date of service: 06/10/18 Interval history: Pt seen and examined c/o left sided weakness UE> LE denies any chest pain MRI pending Objective - Exam Narrative Exam: General appearance: Present: no acute distress, obese - EENT Eyes: PERRL, EOM intact ENT: hearing intact, clear oral mucosa Ears: bilateral: normal - Neck Neck: supple, normal ROM - Respiratory Respiratory effort: normal Respiratory: bilateral: CTA - Cardiovascular Rhythm: regular Heart Sounds: Present: S1 & S2. Absent: gallop, rub Extremities: pulses intact, No edema, normal color, Full ROM - Gastrointestinal General gastrointestinal: Present: soft, non-tender, non-distended, normal bowel sounds - Integumentary Integumentary: clear, warm, dry - Musculoskeletal Musculoskeletal: left sided weakness - Neurologic Neurologic: focal deficits (left sided weakness), no gait normal - Psychiatric Psychiatric: memory intact, appropriate mood/affect, intact judgment & insight - Constitutional Vitals: Vital Signs - 12hr 06/10/18 06/10/18 06/10/18 04:51 05:41 07:41 Temperature 97.7 F 97.4 F L Pulse Rate 71 71 66 Respiratory 20 18 Rate Blood Pressure 129/76 129/76 145/68 Blood Pressure [Right] O2 Sat by Pulse 96 94 Oximetry 06/10/18 06/10/18 06/10/18 07:48 10:00 12:21 Temperature 97.5 F L Pulse Rate 71 68 72 Respiratory 18 Rate Blood Pressure 129/76 146/68 Blood Pressure [Right] O2 Sat by Pulse 96 Oximetry 06/10/18 06/10/18 06/10/18 12:42 14:34 14:35 Temperature Pulse Rate 73 73 75 Respiratory Rate Blood Pressure 146/68 185/60 185/60 Blood Pressure [Right] O2 Sat by Pulse Oximetry 06/10/18 15:24 Temperature Pulse Rate 70 Respiratory Rate Blood Pressure Blood Pressure 145/79 [Right] O2 Sat by Pulse Oximetry - Labs CBC & Chem 7: 06/10/18 08:09 06/10/18 08:09 Labs: Abnormal lab results 06/09/18 06/10/18 06/10/18 Range/Units 22:36 08:09 08:09 RDW 15.6 H (13.2-15.2) % Creatinine 0.5 L (0.7-1.2) mg/dL Glucose 112 H (65-100) mg/dL POC Glucose 111 H (70-105)
[2018-06-11] MEDS: APRESOLINE PO SCH ×4 (05:26→23:41)
[2018-06-11] MEDS: SYNTHROID PO SCH ×2 (05:27)
[2018-06-11] MEDS: CATAPRES PO SCH ×4 (05:27→23:41)
[2018-06-11] MEDS: TYLENOL PO PRN (12:16)
[2018-06-11] MEDS: ECOTRIN PO SCH (12:17)
[2018-06-11] MEDS: NEURONTIN PO SCH (12:17)
[2018-06-11] MEDS: TENORMIN PO SCH (12:20)
[2018-06-11] MEDS: HumaLOG SUB-Q SCH ×4 (12:21→21:11)
--- NOTE | 2018-06-11 15:24 | Progress Note ---
Assessment and Plan / Possible Acute CVA (cerebral vascular accident) Monitor at telemetry, Initiated on stroke protocol, cont Neuro check, Antiplatelet/statin therapy, negative Brain, MRA Brain, pending 2d Echo result PT recommended RUSLAN / Acute on chronic Left-sided weakness/hameparesis Secondary to previous CVA, Patient states that symptom has worsened PT consulted, /hypothyroidism, cont synthroid /HTN, resumed home meds / Diabetes cont ADA diet, insulin, accu check /Morbid Obesity Supportive care, diet/exercise education when medically stable / DVT prophylaxis SCD to BLE while in bed. Disposition: need RUSLAN Brief history: Very pleasant 67-year-old female patient with significant history of CVA with left-sided weakness, was admitted through emergency room with worsening left- sided weakness and neurological symptoms, patient was not a candidate for TPA and thrombectomy, admitted per stroke protocol. Subjective Date of service: 06/11/18 Interval history: Pt seen and examined c/o left sided weakness UE> LE denies any chest pain pending placement Objective - Exam Narrative Exam: General appearance: Present: no acute distress, obese - EENT Eyes: PERRL, EOM intact ENT: hearing intact, clear oral mucosa Ears: bilateral: normal - Neck Neck: supple, normal ROM - Respiratory Respiratory effort: normal Respiratory: bilateral: CTA - Cardiovascular Rhythm: regular Heart Sounds: Present: S1 & S2. Absent: gallop, rub Extremities: pulses intact, No edema, normal color, Full ROM - Gastrointestinal General gastrointestinal: Present: soft, non-tender, non-distended, normal bowel sounds - Integumentary Integumentary: clear, warm, dry - Musculoskeletal Musculoskeletal: left sided weakness - Neurologic Neurologic: focal deficits (left sided weakness), no gait normal - Psychiatric Psychiatric: memory intact, appropriate mood/affect, intact judgment & insight - Constitutional Vitals: Vital Signs - 12hr 06/11/18 06/11/18 06/11/18 03:57 05:26 05:27 Temperature 97.9 F Pulse Rate 65 65 65 Respiratory 18 Rate Blood Pressure 149/79 149/79 149/79 O2 Sat by Pulse 97 Oximetry 06/11/18 06/11/18 07:39 11:56 Temperature 98.1 F 98.3 F Pulse Rate 77 77 Respiratory 18 18 Rate Blood Pressure 128/59 125/64 O2 Sat by Pulse 92 92 Oximetry - Labs CBC & Chem 7: 06/10/18 08:09 06/10/18 08:09 Labs: Abnormal lab results 06/10/18 06/11/18 Range/Units 17:27 11:57 POC Glucose 127 H 124 H (70-105)
[2018-06-11] MEDS: LOVENOX SUB-Q SCH (21:11)
[2018-06-12] MEDS: APRESOLINE PO SCH ×3 (05:24→17:26)
[2018-06-12] MEDS: SYNTHROID PO SCH ×2 (05:25)
[2018-06-12] MEDS: CATAPRES PO SCH ×3 (05:25→17:20)
[2018-06-12] MEDS: ULTRAM PO PRN (05:39)
[2018-06-12] MEDS: HumaLOG SUB-Q SCH ×4 (08:00→21:57)
[2018-06-12] MEDS: TENORMIN PO SCH (10:14)
[2018-06-12] MEDS: ECOTRIN PO SCH (10:14)
[2018-06-12] MEDS: NEURONTIN PO SCH (10:14)
[2018-06-12] MEDS ORDERED: ANTIVERT PO PRN (11:48)
--- NOTE | 2018-06-12 17:16 | Progress Note ---
Assessment and Plan / Possible Acute CVA (cerebral vascular accident) Monitor at telemetry, Initiated on stroke protocol, cont Neuro check, Antiplatelet/statin therapy, negative Brain, MRA Brain, pending 2d Echo result PT recommended RUSLAN / Acute on chronic Left-sided weakness/hameparesis Secondary to previous CVA, Patient states that symptom has worsened PT consulted, /hypothyroidism, cont synthroid /HTN, resumed home meds / Diabetes cont ADA diet, insulin, accu check /Morbid Obesity Supportive care, diet/exercise education when medically stable / DVT prophylaxis SCD to BLE while in bed. Disposition: need RUSLAN, d/c pending on placement Brief history: Very pleasant 67-year-old female patient with significant history of CVA with left-sided weakness, was admitted through emergency room with worsening left-sided weakness and neurological symptoms, patient was not a candidate for TPA and thrombectomy, admitted per stroke protocol. Subjective Date of service: 06/12/18 Interval history: Pt seen and examined c/o left sided weakness UE> LE denies any chest pain pending placement Objective - Exam Narrative Exam: General appearance: Present: no acute distress, obese - EENT Eyes: PERRL, EOM intact ENT: hearing intact, clear oral mucosa Ears: bilateral: normal - Neck Neck: supple, normal ROM - Respiratory Respiratory effort: normal Respiratory: bilateral: CTA - Cardiovascular Rhythm: regular Heart Sounds: Present: S1 & S2. Absent: gallop, rub Extremities: pulses intact, No edema, normal color, Full ROM - Gastrointestinal General gastrointestinal: Present: soft, non-tender, non-distended, normal bowel sounds - Integumentary Integumentary: clear, warm, dry - Musculoskeletal Musculoskeletal: left sided weakness - Neurologic Neurologic: focal deficits (left sided weakness), no gait normal - Psychiatric Psychiatric: memory intact, appropriate mood/affect, intact judgment & insight - Constitutional Vitals: Vital Signs - 12hr 06/12/18 06/12/18 06/12/18 06:54 08:29 10:00 Temperature 97.9 F Pulse Rate 69 63 Pulse Rate [ 63 From Monitor] Respiratory 20 20 Rate Blood Pressure 136/60 O2 Sat by Pulse 96 96 Oximetry 06/12/18 06/12/18 06/12/18 10:14 12:25 12:45 Temperature 97.6 F Pulse Rate 63 66 66 Pulse Rate [ From Monitor] Respiratory 18 Rate Blood Pressure 136/60 116/63 116/63 O2 Sat by Pulse 98 Oximetry 06/12/18 06/12/18 06/12/18 12:46 16:37 16:38 Temperature 97.9 F Pulse Rate 66 61 Pulse Rate [ From Monitor] Respiratory 18 Rate Blood Pressure 116/63 143/73 O2 Sat by Pulse 98 Oximetry - Labs CBC & Chem 7: 06/10/18 08:09 06/10/18 08:09 Labs: Abnormal lab results 06/11/18 06/12/18 Range/Units 20:40 11:44 POC Glucose 132 H 107 H (70-105)
[2018-06-12] MEDS: LOVENOX SUB-Q SCH (21:57)
[2018-06-13] MEDS: APRESOLINE PO SCH ×4 (00:57→18:25)
[2018-06-13] MEDS: CATAPRES PO SCH ×4 (00:58→18:26)
[2018-06-13] MEDS: SYNTHROID PO SCH ×2 (06:24→06:25)
[2018-06-13] MEDS: HumaLOG SUB-Q SCH ×4 (08:48→22:15)
[2018-06-13] MEDS: TENORMIN PO SCH (10:36)
[2018-06-13] MEDS: NEURONTIN PO SCH (10:36)
[2018-06-13] MEDS: ECOTRIN PO SCH (10:37)
--- NOTE | 2018-06-13 15:37 | Progress Note ---
Assessment and Plan / Possible Acute CVA (cerebral vascular accident) Monitor at telemetry, Initiated on stroke protocol, cont Neuro check, Antiplatelet/statin therapy, negative Brain, MRA Brain, pending 2d Echo result PT recommended RUSLAN / Acute on chronic Left-sided weakness/hameparesis Secondary to previous CVA, Patient states that symptom has worsened PT consulted, /hypothyroidism, cont synthroid /HTN, resumed home meds / Diabetes cont ADA diet, insulin, accu check /Morbid Obesity Supportive care, diet/exercise education when medically stable / DVT prophylaxis SCD to BLE while in bed. Disposition: need RUSLAN, d/c pending on placement Brief history: Very pleasant 67-year-old female patient with significant history of CVA with left-sided weakness, was admitted through emergency room with worsening left-sided weakness and neurological symptoms, patient was not a candidate for TPA and thrombectomy, admitted per stroke protocol. Subjective Date of service: 06/13/18 Interval history: Pt seen and examined c/o left sided weakness UE> LE denies any chest pain pending placement Objective - Exam Narrative Exam: General appearance: Present: no acute distress, obese - EENT Eyes: PERRL, EOM intact ENT: hearing intact, clear oral mucosa Ears: bilateral: normal - Neck Neck: supple, normal ROM - Respiratory Respiratory effort: normal Respiratory: bilateral: CTA - Cardiovascular Rhythm: regular Heart Sounds: Present: S1 & S2. Absent: gallop, rub Extremities: pulses intact, No edema, normal color, Full ROM - Gastrointestinal General gastrointestinal: Present: soft, non-tender, non-distended, normal bowel sounds - Integumentary Integumentary: clear, warm, dry - Musculoskeletal Musculoskeletal: left sided weakness - Neurologic Neurologic: focal deficits (left sided weakness), no gait normal - Psychiatric Psychiatric: memory intact, appropriate mood/affect, intact judgment & insight - Constitutional Vitals: Vital Signs - 12hr 06/13/18 06/13/18 06/13/18 04:26 06:23 06:24 Temperature 98.2 F Pulse Rate 66 66 66 Respiratory 20 Rate Blood Pressure 114/49 114/49 114/49 O2 Sat by Pulse 95 Oximetry 06/13/18 06/13/18 06/13/18 08:14 11:39 11:40 Temperature 98.5 F 98.2 F Pulse Rate 65 77 Respiratory 18 18 Rate Blood Pressure 135/78 128/69 O2 Sat by Pulse 94 95 Oximetry - Labs CBC & Chem 7: 06/10/18 08:09 06/10/18 08:09 Labs: Abnormal lab results 06/12/18 06/13/18 Range/Units 16:43 11:40 POC Glucose 66 L 130 H (70-105)
[2018-06-13] MEDS: TYLENOL PO PRN (18:26)
[2018-06-13] MEDS: LOVENOX SUB-Q SCH (22:14)
[2018-06-14] MEDS: APRESOLINE PO SCH ×4 (00:40→19:46)
[2018-06-14] MEDS: CATAPRES PO SCH ×4 (00:40→19:47)
[2018-06-14] MEDS: SYNTHROID PO SCH ×2 (05:47)
[2018-06-14] MEDS: HumaLOG SUB-Q SCH ×4 (10:12→22:49)
[2018-06-14] MEDS: NEURONTIN PO SCH (10:25)
[2018-06-14] MEDS: ECOTRIN PO SCH (10:29)
[2018-06-14] MEDS: TENORMIN PO SCH (10:29)
--- NOTE | 2018-06-14 15:19 | Progress Note ---
Assessment and Plan / Possible Acute CVA (cerebral vascular accident) Monitor at telemetry, Initiated on stroke protocol, cont Neuro check, Antiplatelet/statin therapy, negative Brain, MRA Brain, pending 2d Echo result PT recommended RUSLAN / Acute on chronic Left-sided weakness/hameparesis Secondary to previous CVA, Patient states that symptom has worsened PT consulted, /hypothyroidism, cont synthroid /HTN, resumed home meds / Diabetes cont ADA diet, insulin, accu check /Morbid Obesity Supportive care, diet/exercise education when medically stable / DVT prophylaxis SCD to BLE while in bed. Disposition: need RUSLAN, d/c pending on placement Brief history: Very pleasant 67-year-old female patient with significant history of CVA with left-sided weakness, was admitted through emergency room with worsening left-sided weakness and neurological symptoms, patient was not a candidate for TPA and thrombectomy, admitted per stroke protocol. Subjective Date of service: 06/14/18 Interval history: Pt seen and examined c/o left sided weakness UE> LE denies any chest pain pending placement Objective - Exam Narrative Exam: General appearance: Present: no acute distress, obese - EENT Eyes: PERRL, EOM intact ENT: hearing intact, clear oral mucosa Ears: bilateral: normal - Neck Neck: supple, normal ROM - Respiratory Respiratory effort: normal Respiratory: bilateral: CTA - Cardiovascular Rhythm: regular Heart Sounds: Present: S1 & S2. Absent: gallop, rub Extremities: pulses intact, No edema, normal color, Full ROM - Gastrointestinal General gastrointestinal: Present: soft, non-tender, non-distended, normal bowel sounds - Integumentary Integumentary: clear, warm, dry - Musculoskeletal Musculoskeletal: left sided weakness - Neurologic Neurologic: focal deficits (left sided weakness), no gait normal - Psychiatric Psychiatric: memory intact, appropriate mood/affect, intact judgment & insight - Constitutional Vitals: Vital Signs - 12hr 06/14/18 06/14/18 06/14/18 04:42 05:47 08:03 Temperature 98.0 F 97.7 F Pulse Rate 63 63 61 Respiratory 17 18 Rate Blood Pressure 148/68 148/68 115/55 Blood Pressure [Left] O2 Sat by Pulse 96 98 Oximetry 06/14/18 06/14/18 06/14/18 08:07 10:29 12:47 Temperature 97.7 F Pulse Rate 61 65 Respiratory 18 18 Rate Blood Pressure 115/55 134/70 Blood Pressure 115/55 [Left] O2 Sat by Pulse 98 94 Oximetry 06/14/18 12:49 Temperature 98.5 F Pulse Rate Respiratory Rate Blood Pressure Blood Pressure [Left] O2 Sat by Pulse Oximetry - Labs CBC & Chem 7: 06/10/18 08:09 06/10/18 08:09 Labs: Abnormal lab results 06/13/18 06/13/18 06/13/18 Range/Units 18:19 20:53 23:12 POC Glucose 138 H 109 H 131 H (70-105)
[2018-06-14] MEDS: LOVENOX SUB-Q SCH (22:50)
[2018-06-15] MEDS: APRESOLINE PO SCH ×4 (03:09→18:28)
[2018-06-15] MEDS: CATAPRES PO SCH ×4 (03:09→18:28)
[2018-06-15] MEDS: SYNTHROID PO SCH ×2 (06:04)
[2018-06-15] MEDS: HumaLOG SUB-Q SCH ×3 (08:16→18:29)
[2018-06-15] MEDS: NEURONTIN PO SCH (10:34)
[2018-06-15] MEDS: TENORMIN PO SCH (10:34)
[2018-06-15] MEDS: ECOTRIN PO SCH (10:34)
--- NOTE | 2018-06-15 13:32 | Discharge Summary ---
Providers - Providers Date of Admission: 06/06/18 18:59 Date of discharge: 06/15/18 Attending physician: MIGUELINA LEE 06/06/18 15:54 Consult to Physician [CONS] Urgent Comment: Consulting Provider: LEENA REARDON Physician Instructions: Reason For Exam: cva 06/06/18 18:59 Occupational Therapy Evaluate and Treat [CONS] Routine Comment: Reason For Exam: Neuro deficits Physical Therapy Evaluation and Treat [CONS] Routine Comment: Reason For Exam: Neuro deficits 06/06/18 19:00 Speech Therapy Evaluation and Treat [CONS] Routine Reason For Exam: swallow eval 06/07/18 06:14 Consult to Wound/ET Nurse [CONS] Routine Reason For Exam: wound eval 06/07/18 08:09 Consult to Physician [CONS] Routine Comment: Consulting Provider: GILL FISHER Physician Instructions: Reason For Exam: cva 06/10/18 16:03 Consult to Case Management [CONS] Routine Services Needed at Discharge: Other Notified:: case management Additional Physician Instructions: RUSLAN Primary care physician: TRACIE PEREZ Hospitalization Condition: Stable Pertinent studies: CXR CT head MRI/MRA brain 2d echo Carotid doppler Hospital course: Brief history: Very pleasant 67-year-old female patient with significant history of CVA with left-sided weakness, was admitted through emergency room with worsening left- sided weakness and neurological symptoms, patient was not a candidate for TPA and thrombectomy, admitted per stroke protocol. Discharge diagnosis and management: / Possible TIA vs Hypertensive encephalopathy BP was 222/134 on admission Acute CVA (cerebral vascular accident), ruled out Monitored at telemetry, Initiated on stroke protocol with frequent Neuro check, Antiplatelet/statin therapy, negative Brain, MRA Brain, preserved EF on 2d Echo result / Acute on chronic Left-sided weakness/hameparesis Secondary to previous CVA, Patient states that symptom has worsened PT consulted, recommended RUSLAN /hypothyroidism, continued synthroid /HTN, Accelerated/Malignant BP was 222/134 on admission resumed home meds, BP much improved on discharge / Diabetes type 2 managed with ADA diet, insulin, accque check /Morbid Obesity Supportive care, diet education provided / DVT prophylaxis SCD to BLE while in bed. Disposition: RUSLAN, d/c delayed for pending placement Disposition: DC/[place]-[facility] Time spent for discharge: 34 minutes Core Measure Documentation - Palliative Care Palliative Care/ Comfort Measures: Not Applicable - Core Measures Any of the following diagnoses?: history only Exam - Physical Exam Narrative exam: General appearance: Present: no acute distress, obese - EENT Eyes: PERRL, EOM intact ENT: hearing intact, clear oral mucosa Ears: bilateral: normal - Neck Neck: supple, normal ROM - Respiratory Respiratory effort: normal Respiratory: bilateral: CTA - Cardiovascular Rhythm: regular Heart Sounds: Present: S1 & S2. Absent: gallop, rub Extremities: pulses intact, No edema, normal color, Full ROM - Gastrointestinal General gastrointestinal: Present: soft, non-tender, non-distended, normal bowel sounds - Integumentary Integumentary: clear, warm, dry - Musculoskeletal Musculoskeletal: left sided weakness - Neurologic Neurologic: focal deficits (left sided weakness), no gait normal - Psychiatric Psychiatric: memory intact, appropriate mood/affect, intact judgment & insight - Constitutional Vitals: Temp Pulse Resp BP Pulse Ox 98.6 F 80 18 135/67 95 06/14/18 16:43 06/15/18 09:22 06/14/18 16:43 06/15/18 06:04 06/14/18 16:43 Plan Activity: fall precautions Weight Bearing Status: Non-Weight Bearing Diet: low fat, low salt Follow up with: PRIMARY CARE, [Referring] - 3-5 Days
--- NOTE | 2018-06-15 13:53 | Progress Note ---
Subjective Date of service: 06/15/18 Interval history: MRI of brain does not show acute stroke therefore discharge is OK medical therapy for chronic strokes is indicated Objective - Vital Sign Vital Signs - 12hr 06/15/18 06/15/18 06/15/18 03:09 06:03 06:04 Pulse Rate 60 80 80 Blood Pressure 151/77 135/67 135/67 06/15/18 09:22 Pulse Rate 80 Blood Pressure - Laboratory Findings CBC and BMP: 06/10/18 08:09 06/10/18 08:09 Abnormal Lab Findings: Abnormal Labs 06/06/18 06/06/18 06/06/18 16:19 16:19 16:19 RDW 15.7 H [place] % (Auto) 12.1 H Thrombin Time 21.0 H Potassium 3.5 L Chloride 96.8 L Creatinine 0.5 L Glucose 105 H POC Glucose HDL Cholesterol 06/07/18 06/08/18 06/09/18 05:32 11:55 06:03 RDW [place] % (Auto) Thrombin Time Potassium Chloride Creatinine Glucose POC Glucose 112 H 114 H HDL Cholesterol 35 L 06/09/18 06/09/18 06/10/18 11:44 22:36 08:09 RDW 15.6 H [place] % (Auto) Thrombin Time Potassium Chloride Creatinine Glucose POC Glucose 113 H 111 H HDL Cholesterol 06/10/18 06/10/18 06/11/18 08:09 17:27 11:57 RDW [place] % (Auto) Thrombin Time Potassium Chloride Creatinine 0.5 L Glucose 112 H POC Glucose 127 H 124 H HDL Cholesterol 06/11/18 06/12/18 06/12/18 20:40 11:44 16:43 RDW [place] % (Auto) Thrombin Time Potassium Chloride Creatinine Glucose POC Glucose 132 H 107 H 66 L HDL Cholesterol 06/13/18 06/13/18 06/13/18 11:40 18:19 20:53 RDW [place] % (Auto) Thrombin Time Potassium Chloride Creatinine Glucose POC Glucose 130 H 138 H 109 H HDL Cholesterol 06/13/18 06/14/18 23:12 16:43 RDW [place] % (Auto) Thrombin Time Potassium Chloride Creatinine Glucose POC Glucose 131 H 107 H HDL Cholesterol
[2018-06-15 18:29] VITALS: BP 154/84
--- NOTE | 2018-06-19 15:53 | Query-Altered Level of Consc. ---
Donald Rios Romy Date:____06/19/18 Tax Analyst/CDS:___ciro/ [email or web address] Phone#: [phone] Exercise your independent professional judgment when responding to this query. Questions asked do not imply a particular answer is desired or expected. We greatly appreciate your clarification on this issue. Clinical Documentation States: 68 YO Female with MO, DM, HTN, CVA, OA, Obesity Hypoventilation, Lymphedema, Debility presents to ED for evaluation. Pt is confused and unable to provide detailed history. Upon arrival the patient was found to be confused . Discharge diagnosis: Possible Acute CVA Clinical Findings Show: negative Brain, MRA Brain Please provide an appropriate diagnosis clarifying the Etiology and Acuity of this clinical scenario: [ ] Metabolic Encephalopathy [ ] Toxic Encephalopathy [ ] Toxic - Metabolic Encephalopathy [ ] Septic Encephalopathy with Sepsis [ ] Septic Encephalopathy without Sepsis [ ] Acute Hepatic Encephalopathy [ ] Subacute Hepatic Encephalopathy [ x] Other:__possible TIA [ ] Unable To Determine [ ]Comment/Explanation: Present on Admission: [ x] Yes (Y) [ ] Clinically undeterminable (W) [ ] No (N) Please also document response in your Progress Notes and/or Discharge Summary and indicate if the condition was present on admission. WALDO
== END 2018-06-15 18:47 | DRG 69 ==
LOC: ED 15:40 → 4A 18:59
PROVIDERS: ADMIT Internal Medicine; ATTEND Internal Medicine
DX: G45.9 Transient cerebral ischemic attack, unspecified (principal); G81.94 Hemiplegia, unspecified affecting left nondominant side; Z68.42 Body mass index [BMI] 45.0-49.9, adult; E66.2 Morbid (severe) obesity with alveolar hypoventilation; E11.9 Type 2 diabetes mellitus without complications; E03.9 Hypothyroidism, unspecified; I10 Essential (primary) hypertension; M19.90 Unspecified osteoarthritis, unspecified site; Z98.51 Tubal ligation status; Z83.3 Family history of diabetes mellitus; Z82.49 Family history of ischemic heart disease and other diseases of the circulatory system; Z88.1 Allergy status to other antibiotic agents; Z88.0 Allergy status to penicillin
CPT/HCPCS: 36415; 70450; 70544; 70551; 71045; 80048; 80061; 81001; 82550; 82962; 84484; 85025; 85027; 85610; 85670; 85730; 93005; 93010; 93306; 93880; G0378; A9270-GY; J1650

== ENCOUNTER 2022-01-07 16:40 | Emergency (ER) | payer MEDICARE ==
[2022-01-07 19:29] VITALS: BP 175/88
[2022-01-07 19:51] LABS: Basophils % (Auto) 0.5 % (0.0-1.8); Eosinophils # (Auto) 0.2 K/mm3 (0.0-0.4); Eosinophils % (Auto) 3.2 % (0.0-4.3); Hematocrit 40.3 % (30.3-42.9); Hemoglobin 12.6 gm/dl (10.1-14.3); Lymphocytes # (Auto) 2.4 K/mm3 (1.2-5.4); Lymphocytes % (Auto) 41.2 % (13.4-35.0); Mean Corpuscular HGB Conc 31 % (30-34); Mean Corpuscular Volume 86 fl (79-97); Monocytes # (Auto) 0.9 K/mm3 (0.0-0.8); Monocytes % (Auto) 14.8 % (0.0-7.3); Platelet Count 225 K/mm3 (140-440); Red Blood Count 4.68 M/mm3 (3.65-5.03); Red Cell Distribution Width 15.8 % (13.2-15.2)
--- NOTE | 2022-01-07 19:57 | Emergency Department Report ---
- General Chief complaint: Weakness Stated complaint: INCREASED L SIDED WEAKNESS Time Seen by Provider: 01/07/22 18:02 Source: patient, EMS Mode of arrival: Stretcher Limitations: Physical Limitation - History of Present Illness Initial comments: 71 yo F with h/o bilateral chronic lower leg lymphedema who present with left sided shoulder and leg weakness and pain that started after a fall on Friday 3 days ago. Pt reports that she felt her lymphedema is getting worse. No fever or chills reported. She says she has been trying to get brace from her PCP in the last week or so. No other modifying or associated factors reported. Severity scale (0 -10): 0 - Related Data Home Medications Medication Instructions Recorded Confirmed Last Taken Gabapentin 200 mg PO QDAY 07/18/14 06/07/18 06/06/18 cloNIDine [Catapres] 0.2 mg PO QID 07/18/14 06/06/18 06/06/18 metFORMIN [Glucophage] 500 mg PO BID 07/18/14 06/07/18 06/06/18 cloNIDine [Catapres] 0.2 mg PO Q6H 06/07/18 06/07/18 06/06/18 hydrALAZINE [Apresoline TAB] 25 mg PO Q6HR 06/07/18 06/07/18 06/06/18 Previous Rx's Medication Instructions Recorded Last Taken Type Levothyroxine [Synthroid] 25 mcg PO DAILY@0600 #30 tablet 11/28/17 06/06/18 Rx Levothyroxine [Synthroid] 150 mcg PO DAILY@0600 #30 tablet 11/28/17 06/06/18 Rx traMADoL [Ultram 50 MG tab] 50 mg PO Q6HR PRN #10 tablet 11/28/17 Unknown Rx Aspirin EC [Ecotrin] 325 mg PO QDAY tablet 06/15/18 Unknown Rx AtorvaSTATin [Lipitor] 40 mg PO QHS tablet 06/15/18 Unknown Rx atenoloL [Tenormin] 50 mg PO QDAY tablet 06/15/18 Unknown Rx Allergies Allergy/AdvReac Type Severity Reaction Status Date / Time doxycycline Allergy Itching Verified 01/07/22 16:56 alprazolam [From Xanax] AdvReac Shortness Verified 01/07/22 16:56 of Breath Penicillins AdvReac Rash Verified 01/07/22 16:56 ED Review of Systems ROS: Stated complaint: INCREASED L SIDED WEAKNESS Other details as noted in HPI Comment: All other systems reviewed and negative Musculoskeletal: other (left weakness with left shoulder, wrist and thigh and lower leg and ankle pain ) ED Past Medical Hx - Past Medical History Hx Hypertension: Yes Hx CVA: Yes (RCVA with L HP) Hx Congestive Heart Failure: No Hx Diabetes: Yes Hx Deep Vein Thrombosis: No Hx Arthritis: No Hx Seizures: No Hx Asthma: No Additional medical history: LYMPHEDEMA - Surgical History Additional Surgical History: tubal ligation - Social History Smoking Status: Never Smoker - Medications Home Medications: Home Medications Medication Instructions Recorded Confirmed Last Taken Type Gabapentin 200 mg PO QDAY 07/18/14 06/07/18 06/06/18 History cloNIDine [Catapres] 0.2 mg PO QID 07/18/14 06/06/18 06/06/18 History metFORMIN [Glucophage] 500 mg PO BID 07/18/14 06/07/18 06/06/18 History Levothyroxine [Synthroid] 25 mcg PO DAILY@0600 #30 tablet 11/28/17 06/06/18 06/06/18 Rx Levothyroxine [Synthroid] 150 mcg PO DAILY@0600 #30 tablet 11/28/17 06/07/18 06/06/18 Rx traMADoL [Ultram 50 MG tab] 50 mg PO Q6HR PRN #10 tablet 11/28/17 06/06/18 Unknown Rx cloNIDine [Catapres] 0.2 mg PO Q6H 06/07/18 06/07/18 06/06/18 History hydrALAZINE [Apresoline TAB] 25 mg PO Q6HR 06/07/18 06/07/18 06/06/18 History Aspirin EC [Ecotrin] 325 mg PO QDAY tablet 06/15/18 Unknown Rx AtorvaSTATin [Lipitor] 40 mg PO QHS tablet 06/15/18 Unknown Rx atenoloL [Tenormin] 50 mg PO QDAY tablet 06/15/18 Unknown Rx ED Physical Exam - General Limitations: Physical Limitation General appearance: alert, in no apparent distress - Head Head exam: Present: atraumatic, normal inspection - Eye Eye exam: Present: normal appearance Pupils: Present: normal accommodation - ENT ENT exam: Present: normal exam, normal orophraynx, mucous membranes dry - Neck Neck exam: Present: normal inspection. Absent: tenderness - Respiratory Respiratory exam: Present: normal lung sounds bilaterally. Absent: respiratory distress, accessory muscle use - Cardiovascular Cardiovascular Exam: Present: regular rate, normal rhythm, normal heart sounds - GI/Abdominal GI/Abdominal exam: Present: soft, normal bowel sounds. Absent: distended, tenderness - Extremities Exam Extremities exam: Present: other (non pitting lymphedema bilaterally up to the hip area) - Back Exam Back exam: Absent: tenderness - Neurological Exam Neurological exam: Present: alert, oriented X3 - Psychiatric Psychiatric exam: Present: normal affect, normal mood - Skin Skin exam: Present: warm, normal color ED Course Vital Signs 01/07/22 01/07/22 01/07/22 16:40 17:45 17:50 Temperature 97.2 F L Pulse Rate 71 80 Respiratory 15 19 18 Rate Blood Pressure 170/88 Blood Pressure 161/95 [Right] O2 Sat by Pulse 99 98 99 Oximetry 01/07/22 01/07/22 01/07/22 18:00 18:15 18:30 Temperature Pulse Rate 85 84 92 H Respiratory 17 14 17 Rate Blood Pressure 151/73 152/74 196/98 Blood Pressure [Right] O2 Sat by Pulse 98 99 100 Oximetry 01/07/22 01/07/22 01/07/22 18:45 19:00 19:15 Temperature Pulse Rate 82 75 71 Respiratory 13 13 12 Rate Blood Pressure 188/98 186/86 175/88 Blood Pressure [Right] O2 Sat by Pulse 99 99 99 Oximetry ED Medical Decision Making - Lab Data Result diagrams: 01/07/22 19:33 01/07/22 19:33 - Medical Decision Making --here with left shoulder and lower leg pain with weakness and noted with --non pitting lymphedema bilaterally up to the hip area-- will go ahead and check routine workup for any infectious process or electrolytes abnormality -- labs reviewed and noted to be unremarkable except XR left shoulder, humerus, wrist, femur and tib/fib and ankle with no acute fracture or dislocation but mild DJD-- patient weakness is likely as a result of her increase leg edema-- I encourage patient to discuss with her PCP for short rehab or half-way for recovery. Critical care attestation.: If time is entered above; I have spent that time in minutes in the direct care of this critically ill patient, excluding procedure time. ED Disposition Clinical Impression: Left leg pain, Left-sided muscle weakness, Lymphedema, Obesity (BMI 30-39.9) Shoulder pain, left Qualifiers: Chronicity: acute Qualified Code(s): M25.512 - Pain in left shoulder Fall Qualifiers: Encounter type: initial encounter Qualified Code(s): W19.XXXA - Unspecified fall, initial encounter Disposition: HOME / SELF CARE / HOMELESS Is pt being admited?: No Does the pt Need Aspirin: No Condition: Stable Instructions: Lymphedema, How to Use Cold Therapy, [id number], Shoulder Pain, [id number], Obesity, Adult, Mrbk-[id number], Joint Pain, [id number] Additional Instructions: It is important that you call your primary doctor Dr. Perez and arrange for short stay at intermediate or rehab for recovery Call or return to emergency room if your symptoms worsen Referrals: TRACIE PEREZ MD [Staff Physician] - 3-5 Days Time of Disposition: 22:20
[2022-01-07 20:03] LABS: INR 0.95 (0.87-1.13)
[2022-01-07 20:04] LABS: Alanine Aminotransferase 9 units/L (7-56); Albumin 4.6 g/dL (3.9-5); Blood Urea Nitrogen 11 mg/dL (7-17); Calcium 9.4 mg/dL (8.4-10.2); Hemolysis Index 14
[2022-01-07 20:10] LABS: BUN/Creatinine Ratio 22
--- NOTE | 2022-01-07 21:07 | XRay Report ---
LEFT ANKLE 3 VIEW(S) INDICATION / CLINICAL INFORMATION: fall COMPARISON: None available. FINDINGS: BONES / JOINT(S): No acute fracture or subluxation. No significant arthritis. SOFT TISSUES: No significant abnormality. ADDITIONAL FINDINGS: None. LEFT TIBIA-FIBULA 2 VIEW(S) INDICATION / CLINICAL INFORMATION: fall COMPARISON: None available. FINDINGS: BONES / JOINT(S): No acute fracture or subluxation. No significant arthritis. SOFT TISSUES: No significant abnormality. ADDITIONAL FINDINGS: None. Signer Name: Diallo Koenig DO Signed: 01/07/2022 9:02 PM Workstation Name: [id number]
--- NOTE | 2022-01-07 21:22 | XRay Report ---
LEFT FEMUR 2 VIEW(S) INDICATION / CLINICAL INFORMATION: fall COMPARISON: None available. FINDINGS: BONES / JOINT(S): No acute fracture or subluxation. Mild DJD of the hip and knee. SOFT TISSUES: No significant abnormality. ADDITIONAL FINDINGS: None. Signer Name: Diallo Koenig DO Signed: 01/07/2022 9:17 PM Workstation Name: [id number]
--- NOTE | 2022-01-07 21:42 | XRay Report ---
LEFT SHOULDER 3 VIEW(S) INDICATION / CLINICAL INFORMATION: fall COMPARISON: None available. FINDINGS: BONES / JOINT(S): No acute fracture or subluxation. Mild DJD of the AC joint. Mild DJD of the glenohu meral joint. SOFT TISSUES: No significant abnormality. ADDITIONAL FINDINGS: None. LEFT HUMERUS 2 VIEW(S) INDICATION / CLINICAL INFORMATION: fall COMPARISON: None available. FINDINGS: BONES / JOINT(S): No acute fracture or subluxation. Mild DJD of the AC joint. SOFT TISSUES: No significant abnormality. ADDITIONAL FINDINGS: None. LEFT WRIST 2 VIEW(S) INDICATION / CLINICAL INFORMATION: fall COMPARISON: None available. FINDINGS: BONES / JOINT(S): No acute fracture or subluxation. No significant arthritis. SOFT TISSUES: No significant abnormality. ADDITIONAL FINDINGS: None. Signer Name: Diallo Koenig DO Signed: 01/07/2022 9:38 PM Workstation Name: [id number]
[2022-01-07] MEDS ORDERED: oxyCODONE /ACETAMINOPHEN 5-325MG TAB PO ONE (22:20)
--- NOTE | 2022-01-09 10:55 | Electrocardiograph Report ---
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
== END 2022-01-08 00:35 | disposition home or self-care (01) ==
LOC: ED 16:40
DX: M79.662 Pain in left lower leg (principal); M62.81 Muscle weakness (generalized); I89.0 Lymphedema, not elsewhere classified; M25.512 Pain in left shoulder; E66.9 Obesity, unspecified; Z68.30 Body mass index [BMI] 30.0-30.9, adult; I10 Essential (primary) hypertension; E11.9 Type 2 diabetes mellitus without complications; Z86.73 Personal history of transient ischemic attack (TIA), and cerebral infarction without residual deficits; Z88.0 Allergy status to penicillin; Z91.09 Other allergy status, other than to drugs and biological substances; Z79.899 Other long term (current) drug therapy; W19.XXXA Unspecified fall, initial encounter; Y93.89 Activity, other specified; Y92.89 Other specified places as the place of occurrence of the external cause; Y99.8 Other external cause status
CPT/HCPCS: 36415; 80053; 85025; 85610; 85730; 93005; 99284